=== PATIENT | female | born 1965 | race African-American/Black ===

== ENCOUNTER 2018-05-07 14:53 | Emergency (ER) | payer MEDICAID, OTHER ==
[~2018-05-07] VITALS: Ht 162.6 cm; Wt 57.2 kg
[~2018-05-07 14:53] MED LIST: METF500T2 PO
[2018-05-07 15:10] VITALS: BP 103/79
--- NOTE | 2018-05-07 16:05 | NUR ---
52Y/F BIB FRIEND WITH C/O HEART PALPITATIONS/FLUTTER ON R SIDE OF CHEST SINCE TODAY. PT IS AAOX4 , VSS AT THIS TIME, BED DOWN, LOW, LOCKED, BEDRAIL UP X 1, ER MD AWARE AND NOTIFIED OF PT STATUS. PMH: DM (444 IN TRIAGE) LAKISHA
--- NOTE | 2018-05-07 16:30 | NUR ---
Patient being evaluated by physician at bedside.
[2018-05-07 17:15] VITALS: BP 118/82
--- NOTE | 2018-05-07 17:15 | NUR ---
Patient discharged with v/s stable. Written and verbal after care instructions given and explained. Patient verbalized understanding. Ambulatory with steady gait. All questions addressed prior to discharge. Advised to follow up with PMD.
== END 2018-05-07 17:15 | disposition home or self-care (01) ==
LOC: MED 14:53
DX: I49.3 Ventricular premature depolarization (principal); J45.909 Unspecified asthma, uncomplicated; E11.9 Type 2 diabetes mellitus without complications; Z79.84 Long term (current) use of oral hypoglycemic drugs
CPT/HCPCS: 93005; 99283